=== PATIENT | male | born 1995 | race American Indian/Alaskan Native ===

== ENCOUNTER 2016-06-24 00:02 | Emergency (ER) | payer MEDICAID ==
[2016-06-24 00:23] VITALS: BMI 29.8
[2016-06-24 00:26] VITALS: BP 138/78; PULSE 86; RESP 17; TEMP 97.3; O2SAT 96
[2016-06-24] MEDS ORDERED: TDAP Vaccine 0.5 mL Syr IM ONE (00:28)
--- NOTE | 2016-06-24 00:52 | ED PDOC ---
Arrival/HPI - General Chief Complaint: Abnormal Skin Integrity Time Seen by Provider: 06/24/16 00:27 Historian: Patient - History of Present Illness Narrative History of Present Illness (Text): 06/24/16 00:52 20yr old male presents today with laceration to right hand s/p injury. pt states he was walking tripped and tried to catch his fall with his right hand hitting his hand on mirror. pt c/o pain to right hand. denies decreased rom of hand. last tetanus shot was in 2003. denies hitting head. incident occurred prior to arrival. no other complaints. Time/Duration: Prior to Arrival Symptom Onset: Sudden Symptom Course: Unchanged Quality: Throbbing Past Medical History - Provider Review Nursing Documentation Reviewed: Yes - Travel History Have you recently traveled outside [place] w/in the past 3 mons?: No - Past History Past History: Non-Contributing - Infectious Disease Hx of Infectious Diseases: None - Tetanus Immunization Tetanus Immunization: Up to Date - Past Medical History Past Medical History: No Previous - Cardiac Hx Cardiac Disorders: No Hx Hypertension: No - Pulmonary Hx Tuberculosis: No - Neurological HX Cerebrovascular Accident: No Hx Seizures: No - HEENT Hx HEENT Disorder: No - Renal Hx Renal Disorder: No - Endocrine/Metabolic Hx Endocrine Disorders: No - Hematological/Oncological Hx Cancer: No - Integumentary Hx Dermatological Disorder: No - Musculoskeletal/Rheumatological Hx Musculoskeletal Disorders: No Hx Falls: No - Gastrointestinal Hx Gastrointestinal Disorders: No - Genitourinary/Gynecological Hx Sexually Transmitted Diseases: No - Psychiatric Hx Depression: No Hx Substance Use: Yes (marijuana and heroin) - Past Surgical History Past Surgical History: No Previous - Anesthesia Hx Anesthesia: No Hx Anesthesia Reactions: No Hx Malignant Hyperthermia: No - Suicidal Assessment Feels Threatened In Home Enviroment: No Family/Social History - Physician Review Nursing Documentation Reviewed: Yes Family/Social History: Unknown Family HX Smoking Status: Light Smoker < 10 Cigarettes Daily Hx Alcohol Use: Yes Frequency of alcohol use: Few days per week Hx Substance Use: Yes (marijuana and heroin) Substance used: Mariquana Hx Substance Use Treatment: No Allergies/Home Meds Allergies/Adverse Reactions: Allergies lemon Allergy (Verified 10/24/15 21:49) RASH peanut Allergy (Verified 06/24/16 00:26) RASH Review of Systems - Review of Systems Constitutional: absent: Fatigue, Fevers Respiratory: absent: SOB, Cough Cardiovascular: absent: Chest Pain, Palpitations Gastrointestinal: absent: Abdominal Pain, Nausea, Vomiting Musculoskeletal: Arthralgias Skin: Laceration Neurological: absent: Headache, Dizziness Psychiatric: absent: Anxiety Physical Exam Vital Signs Reviewed: Yes Vital Signs Temp Pulse Resp BP Pulse Ox 06/24/16 00:23 97.3 F L 86 17 138/78 96 Temperature: Afebrile Blood Pressure: Normal Pulse: Regular Respiratory Rate: Normal Appearance: Positive for: Well-Appearing, Non-Toxic, Comfortable Pain Distress: None Mental Status: Positive for: Alert and Oriented X 3 - Systems Exam Head: Present: Atraumatic Neck: Present: Normal Range of Motion Respiratory/Chest: Present: Clear to Auscultation, Good Air Exchange. No: Respiratory Distress, Accessory Muscle Use Cardiovascular: Present: Regular Rate and Rhythm, Normal S1, S2. No: Murmurs Upper Extremity: Present: Normal ROM, NORMAL PULSES, Tenderness (right hand; there is a 3cm C shaped laceration noted to right 3rd finger at the PIP, a 1cm laceration noted to right 4th finger, and a 1.5cm c shaped laceration noted to the proximal phalanx of the right 5th finger. full rom of fingers and hand. sensation and distal pulses intact. cap refill <2. no wrist tenderness. ), Neurovascularly Intact, Capillary Refill < 2s. No: Swelling, Erythema, Deformity Neurological: Present: GCS=15 Skin: Present: Warm, Dry Psychiatric: Present: Alert, Oriented x 3 Medical Decision Making ED Course and Treatment: 06/24/16 00:55 Patient is nontoxic well appearing in no distress. Vital signs are stable. Wound irrigated well with high pressure irrigation Tetanus updated keflex po xray right hand; no fracture, no fb Laceration repaired by surgical physician assistant dr. abhishek nevarez; Bacitracin and dressing applied Patient was advised to keep the wound clean and dry, apply bacitracin twice daily. Advised to return immediately if signs of infection develop or return if any other concerning symptoms develop Impression: Laceration, hand Motrin every 6 hours as needed for pain keflex; 1 capsule 4 times daily x 7 days. Keep the wound clean and dry, apply bacitracin twice daily Return in 7-10 days for suture removal Return immediately if signs of infection develop: High fevers, increasing pain, redness, swelling, purulent discharge Follow up with the hand specialist within the next 2 days. Followup with primary care physician within the next 2 days Return if any other concerning symptoms develop 06/24/16 02:15 - RAD Interpretation Radiology Orders: 06/24/16 00:27 HAND RIGHT 3 VIEWS [RAD] Stat - Medication Orders Current Medication Orders: Discontinued Medications Lidocaine HCl (Lidocaine 1% (20ml)) Confirm Administered Dose 20 ml .ROUTE .STK- MED ONE Stop: 06/24/16 01:51 Tetanus/Reduced Diphtheria/Acell Pertussis (Boostrix Vaccine Inj) 0.5 ml IM .ONCE ONE Stop: 06/24/16 00:29 Last Admin: 06/24/16 00:57 Dose: 0.5 ml Disposition/Present on Arrival - Present on Arrival Any Indicators Present on Arrival: No History of DVT/PE: No History of Uncontrolled Diabetes: No Urinary Catheter: No History of Decub. Ulcer: No History Surgical Site Infection Following: None - Disposition Have Diagnosis and Disposition been Completed?: Yes Diagnosis: Laceration of hand Disposition: HOME/ ROUTINE Disposition Time: 00:56 Patient Plan: Discharge Condition: GOOD Discharge Instructions (ExitCare): Care For Your Stitches (ED), Laceration (ED) Additional Instructions: Motrin every 6 hours as needed for pain keflex; 1 capsule 4 times daily x 7 days. Keep the wound clean and dry, apply bacitracin twice daily Return in 7-10 days for suture removal Return immediately if signs of infection develop: High fevers, increasing pain, redness, swelling, purulent discharge Follow up with the hand specialist within the next 2 days. Followup with primary care physician within the next 2 days Return if any other concerning symptoms develop Prescriptions: Cephalexin [Keflex] 500 mg PO QID #28 capsule Ibuprofen [Motrin] 600 mg PO Q6H PRN #20 tab PRN Reason: pain/fever reduction Referrals: Rajesh Mccarthy MD [Staff Provider] - Follow up with primary [facility] [Outside] - Follow up with primary Forms: WORK NOTE
[2016-06-24] MEDS ORDERED: Lidocaine 1% Inj (20ml) ONE (01:50)
--- NOTE | 2016-06-24 08:12 | RAD ---
PROCEDURE: Right Hand Radiographs. HISTORY: multiple lacerations r/o fb COMPARISON: None. FINDINGS: BONES: There is a small bony fragment adjacent to the base of the 5th metacarpal involving the articular surface. This is probably an old fracture. JOINTS: Normal. No osteoarthritic changes. SOFT TISSUES: Normal. OTHER FINDINGS: No evidence of foreign body IMPRESSION: No evidence of foreign body
== END 2016-06-24 02:40 | disposition home or self-care (01) ==
LOC: ED 00:02
DX: S61.411A Laceration without foreign body of right hand, initial encounter (principal); W01.0XXA Fall on same level from slipping, tripping and stumbling without subsequent striking against object, initial encounter; Y93.01 Activity, walking, marching and hiking; F17.210 Nicotine dependence, cigarettes, uncomplicated; Z23 Encounter for immunization

== ENCOUNTER 2016-08-19 02:34 | Emergency (ER) | payer MEDICAID ==
[2016-08-19 02:50] VITALS: BMI 29.7
--- NOTE | 2016-08-19 02:52 | ED PDOC ---
Arrival/HPI - General Time Seen by Provider: 08/19/16 02:42 Historian: Patient - History of Present Illness Narrative History of Present Illness (Text): 08/19/16 02:49 Daniele Ibrahim is a 21 year old male under incarceration by [facility], who presents to the emergency department complaining of an asthma attack prior to arrival. Patient denies any fever, chills, chest pain, svomiting, diarrhea, urinary symptoms, back pain, neck pain, headache, dizziness, or any other complaints. Time/Duration: Prior to Arrival Symptom Onset: Sudden Symptom Course: Unchanged, Improving Severity Level: Mild Activities at Onset: Rest Context: Other Past Medical History - Provider Review Nursing Documentation Reviewed: Yes - Past History Past History: Non-Contributing - Infectious Disease Hx of Infectious Diseases: None - Tetanus Immunization Tetanus Immunization: Up to Date - Past Medical History Past Medical History: No Previous - Cardiac Hx Cardiac Disorders: No Hx Hypertension: No - Pulmonary Hx Tuberculosis: No - Neurological HX Cerebrovascular Accident: No Hx Seizures: No - HEENT Hx HEENT Disorder: No - Renal Hx Renal Disorder: No - Endocrine/Metabolic Hx Endocrine Disorders: No - Hematological/Oncological Hx Cancer: No - Integumentary Hx Dermatological Disorder: No - Musculoskeletal/Rheumatological Hx Musculoskeletal Disorders: No Hx Falls: No - Gastrointestinal Hx Gastrointestinal Disorders: No - Genitourinary/Gynecological Hx Sexually Transmitted Diseases: No - Psychiatric Hx Depression: No Hx Substance Use: Yes (marijuana and heroin) - Past Surgical History Past Surgical History: No Previous - Anesthesia Hx Anesthesia: No Hx Anesthesia Reactions: No Hx Malignant Hyperthermia: No - Suicidal Assessment Feels Threatened In Home Enviroment: No Family/Social History - Physician Review Nursing Documentation Reviewed: Yes Family/Social History: No Known Family HX Smoking Status: Light Smoker < 10 Cigarettes Daily Hx Alcohol Use: Yes Hx Substance Use: Yes (marijuana and heroin) Substance used: Mariquana Hx Substance Use Treatment: No Allergies/Home Meds Allergies/Adverse Reactions: Allergies lemon Allergy (Verified 10/24/15 21:49) RASH peanut Allergy (Verified 06/24/16 00:26) RASH Review of Systems - Physician Review All systems were reviewed & negative as marked: Yes - Review of Systems Constitutional: absent: Fevers, Night Sweats Eyes: absent: Vision Changes ENT: absent: Hearing Changes Respiratory: Other (Asthma attack) Cardiovascular: absent: Chest Pain Gastrointestinal: absent: Abdominal Pain Genitourinary Male: absent: Frequency, Urinary Output Changes Musculoskeletal: absent: Arthralgias Skin: absent: Rash, Pruritis Neurological: absent: Headache Endocrine: absent: Diaphoresis Hemo/Lymphatic: absent: Adenopathy Psychiatric: absent: Anxiety Physical Exam Vital Signs Temp Pulse Resp BP Pulse Ox 08/19/16 04:10 80 16 121/80 99 08/19/16 02:49 98.2 F 84 18 122/74 99 - Systems Exam Head: Present: Atraumatic, Normocephalic Pupils: Present: PERRL Extroacular Muscles: Present: EOMI Conjunctiva: Present: Normal Mouth: Present: Moist Mucous Membranes Neck: Present: Normal Range of Motion Respiratory/Chest: Present: Wheezes (bilaterally) Cardiovascular: Present: Regular Rate and Rhythm, Normal S1, S2. No: Murmurs Abdomen: Present: Normal Bowel Sounds. No: Tenderness, Distention, Peritoneal Signs Back: Present: Normal Inspection Upper Extremity: Present: Normal Inspection. No: Cyanosis, Edema Lower Extremity: Present: Normal Inspection. No: Edema Neurological: Present: GCS=15, CN II-XII Intact, Speech Normal Skin: Present: Warm, Dry, Normal Color. No: Rashes Psychiatric: Present: Alert, Oriented x 3, Normal Insight, Normal Concentration Medical Decision Making ED Course and Treatment: 08/19/16 02:52 Impression: 21 year old male complaining of Asthma attack prior to arrival. Plan: -- Duoneb and Solu-medrol -- Reassess and disposition Prior Visits: Notes and results from previous visits were reviewed. Patient last seen in the ED on 06/24/16 for right hand laceration s/p fall that day. Patient was discharged home. Progress Notes: - Medication Orders Current Medication Orders: Discontinued Medications Albuterol/Ipratropium (Duoneb 3 Mg/0.5 Mg (3 Ml) Ud) 3 ml IH Q15M LÁZARO Stop: 08/19/16 03:31 Last Admin: 08/19/16 03:22 Dose: 3 ml Methylprednisolone (Solu-Medrol) 125 mg IVP ONCE ONE Stop: 08/19/16 02:51 Last Admin: 08/19/16 03:06 Dose: 125 mg - Scribe Statement The provider has reviewed the documentation as recorded by the Jamie Soares Provider Scribe Attestation: All medical record entries made by the Scribe were at my direction and personally dictated by me. I have reviewed the chart and agree that the record accurately reflects my personal performance of the history, physical exam, medical decision making, and the department course for this patient. I have also personally directed, reviewed, and agree with the discharge instructions and disposition. Disposition/Present on Arrival - Present on Arrival Any Indicators Present on Arrival: No History of DVT/PE: No History of Uncontrolled Diabetes: No Urinary Catheter: No History Surgical Site Infection Following: None - Disposition Have Diagnosis and Disposition been Completed?: Yes Diagnosis: Asthma Disposition: RELEASED IN [employer] Disposition Time: 03:30 Condition: GOOD Discharge Instructions (ExitCare): Asthma (ED) Additional Instructions: medically stable for incarceration Prescriptions: predniSONE [predniSONE Tab] 20 mg PO TID #15 tab Albuterol HFA [Ventolin HFA] 1 puff IH QID #1 puff
[2016-08-19 02:54] VITALS: TEMP 98.2; O2SAT 99
[2016-08-19] MEDS: Albuterol-Ipratrop 3 mg / 0.5 (3 ml) UD IH SCH ×2 (03:06→03:22)
[2016-08-19 04:12] VITALS: BP 121/80; PULSE 80; RESP 16
== END 2016-08-19 04:10 ==
LOC: ED 02:34
DX: J45.909 Unspecified asthma, uncomplicated (principal)
CPT/HCPCS: 96374; 99284; J2930

== ENCOUNTER 2017-09-03 23:22 | Inpatient (IN) | payer MEDICAID ==
[2017-09-03 23:23] VITALS: BMI 29.7
--- NOTE | 2017-09-03 23:54 | ED PDOC ---
Arrival/HPI - General Chief Complaint: Substance Abuse Time Seen by Provider: 09/03/17 23:53 Historian: Patient - History of Present Illness Narrative History of Present Illness (Text): 09/03/17 23:54 22 year old male, whose past medical history includes asthma and substance abuse (heroin and cocaine), presents to the emergency department by EMS for substance abuse. [place] was given 2mg of Narcan. Patient is currently awake and alert. Patient states he had only one bag of heroin and admits to also using cocaine, but denies any alcohol use. Patient usual takes 20 bags of heroin a day. Patient reports back soreness and headache, but denies any fever, chills, chest pain, shortness of breath, nausea , vomiting, diarrhea, urinary symptoms, dizziness, trauma/injury, suicidal/ homicidal ideation or any other complaints. PMD: Dr. Earl Sayed Symptom Onset: Gradual Symptom Course: Improving Activities at Onset: Light Context: Other (light rail) Past Medical History - Provider Review Nursing Documentation Reviewed: Yes - Past History Past History: Non-Contributing - Infectious Disease Hx of Infectious Diseases: None - Tetanus Immunization Tetanus Immunization: Up to Date - Past Medical History Past Medical History: No Previous - Cardiac Hx Hypertension: No - Pulmonary Hx Asthma: Yes - Neurological Hx Seizures: No - HEENT Hx HEENT Disorder: No - Renal Hx Renal Disorder: No - Endocrine/Metabolic Hx Endocrine Disorders: No - Hematological/Oncological Hx Blood Disorders: No - Integumentary Hx Dermatological Disorder: No - Musculoskeletal/Rheumatological Hx Musculoskeletal Disorders: No Hx Falls: No (Denied) - Gastrointestinal Hx Gastrointestinal Disorders: No - Genitourinary/Gynecological Hx Sexually Transmitted Diseases: No - Psychiatric Hx Depression: No Hx Substance Use: Yes - Past Surgical History Past Surgical History: No Previous - Anesthesia Hx Anesthesia: No Hx Anesthesia Reactions: No Hx Malignant Hyperthermia: No - Suicidal Assessment Feels Threatened In Home Enviroment: No Family/Social History - Physician Review Nursing Documentation Reviewed: Yes Family/Social History: No Known Family HX Smoking Status: Heavy Smoker > 10 Cigarettes Daily Hx Alcohol Use: Yes Hx Substance Use: Yes Substance used: heroin Hx Substance Use Treatment: No Allergies/Home Meds Allergies/Adverse Reactions: Allergies lemon Allergy (Verified 09/03/17 23:33) RASH peanut Allergy (Verified 09/03/17 23:33) RASH Review of Systems - Physician Review All systems were reviewed & negative as marked: Yes - Review of Systems Constitutional: absent: Fevers, Other (Chills) Respiratory: absent: SOB Cardiovascular: absent: Chest Pain Gastrointestinal: absent: Diarrhea, Nausea, Vomiting Genitourinary Male: absent: Dysuria, Frequency, Hematuria Musculoskeletal: Other (Back soreness) Neurological: Headache. absent: Dizziness Physical Exam Vital Signs Reviewed: Yes Vital Signs Temp Pulse Resp BP Pulse Ox 09/04/17 09:26 98 F 84 18 126/68 99 09/04/17 07:20 98 F 79 17 120/70 99 09/04/17 05:14 86 18 124/47 L 97 09/03/17 23:30 97.7 F 87 18 102/57 L 99 Temperature: Afebrile Blood Pressure: Hypotensive Pulse: Regular Respiratory Rate: Normal Appearance: Positive for: Well-Appearing, Non-Toxic, Comfortable Pain Distress: None Mental Status: Positive for: Alert and Oriented X 3 - Systems Exam Head: Present: Atraumatic, Normocephalic Pupils: Present: PERRL (pupils 3mm) Extroacular Muscles: Present: EOMI Conjunctiva: Present: Normal Mouth: Present: Moist Mucous Membranes Neck: Present: Normal Range of Motion, Other (paravertebral cervical spine tenderness) Respiratory/Chest: Present: Clear to Auscultation, Good Air Exchange. No: Respiratory Distress, Accessory Muscle Use Cardiovascular: Present: Regular Rate and Rhythm, Normal S1, S2. No: Murmurs Abdomen: No: Tenderness, Distention, Peritoneal Signs Back: Present: Normal Inspection Upper Extremity: Present: Normal Inspection. No: Cyanosis, Edema Lower Extremity: Present: Normal Inspection. No: Edema Neurological: Present: GCS=15, CN II-XII Intact, Speech Normal Skin: Present: Warm, Dry, Normal Color. No: Rashes Psychiatric: Present: Alert, Oriented x 3, Normal Insight, Normal Concentration Medical Decision Making ED Course and Treatment: 09/03/17 23:54 Impression: 22 year old male presents for substance abuse. Patient was found unresponsive after using one bag of heroin and cocaine tonight. Patient reports headache and back soreness. Plan: -- EKG -- Labs -- Chest X-ray -- Urinalysis -- Reassess and disposition Progress Notes: Patient request a detox program and something to eat. Patient was given information about the programs. 09/04/17 00:15 Informed by nurse that patient states if he is discharged tonight he will "kill himself". PES workup will be done. 09/04/17 01:13 EKG shows NSR at 79 BPM with occasional PACs. Normal axis. QTC 433. No ST/T wave changes. with no prior for comparison. Interpreted by me. 09/04/17 04:30 CXR Impression: As read by me, no acute disease. 09/04/17 05:27 PES worker tried to evaluate patient, but patient remains intoxicated and not able to answer questions. - Lab Interpretations Lab Results: 09/04/17 01:36 09/04/17 01:36 Lab Results 09/04/17 05:45: Urine Opiates Screen Positive H, Urine Methadone Screen Negative , Ur Barbiturates Screen Negative, Ur Phencyclidine Scrn Negative, Ur Amphetamines Screen Negative, U Benzodiazepines Scrn Positive H, U Oth Cocaine Metabols Positive H, U Cannabinoids Screen Negative 09/04/17 05:45: Urine Color Straw, Urine Appearance Clear, Urine pH 6.0, Ur Specific [place] <= 1.005, Urine Protein Negative, Urine Glucose (UA) Negative, Urine Ketones Negative, Urine Blood Negative, Urine Nitrate Negative, Urine Bilirubin Negative, Urine Urobilinogen 0.2, Ur Leukocyte Esterase Negative 09/04/17 01:36: Alcohol, Quantitative < 10 09/04/17 01:36: Salicylates < 1 L, Acetaminophen < 10.0 L 09/04/17 01:36: Sodium 139, Potassium 3.9, Chloride 95 L, Carbon Dioxide 31, Anion Gap 17, BUN 15, Creatinine 1.0, Est GFR ( Amer) > 60, Est GFR (Non- Af Amer) > 60, Random Glucose 50 L, Calcium 9.4, Total Bilirubin 0.5, AST 202 H D, ALT 456 H, Alkaline Phosphatase 142 H D, Total Protein 8.5 H, Albumin 5.0 H, Globulin 3.5, Albumin/Globulin Ratio 1.4 09/04/17 01:36: WBC 6.7 D, RBC 4.76, Hgb 14.1, Hct 41.2 L, MCV 86.6, MCH 29.6, MCHC 34.2, RDW 13.1, Plt Count 291, MPV 8.3, Gran % 48.5 L, Lymph % (Auto) 39.0 H, [place] % (Auto) 8.5 H, Eos % (Auto) 3.4, Baso % (Auto) 0.6, Gran # 3.26, Lymph # (Auto) 2.6, [place] # (Auto) 0.6, Eos # (Auto) 0.2, Baso # (Auto) 0.04 I have reviewed the lab results: Yes - RAD Interpretation Radiology Orders: 09/04/17 00:24 CHEST PORTABLE [RAD] Stat - EKG Interpretation Interpreted by ED Physician: Yes Type: 12 lead EKG - Medication Orders Current Medication Orders: Albuterol/Ipratropium (Duoneb 3 Mg/0.5 Mg (3 Ml) Ud) 3 ml IH Q4 PRN PRN Reason: sob Arformoterol Tartrate (Brovana) 15 mcg IH [id number] [facility] Budesonide (Pulmicort Respules) 0.25 mg IH [id number] [facility] Stop: 09/07/17 10:00 Clonidine HCl (Catapres) 0.1 mg PO BID PRN PRN Reason: opioid withdrawals Last Admin: 09/04/17 18:15 Dose: 0.1 mg Gabapentin (Neurontin) 300 mg PO TID [facility] PRN Reason: Protocol Last Admin: 09/04/17 18:15 Dose: 300 mg Lorazepam (Ativan) 2 mg IM Q6 PRN; Protocol PRN Reason: Agitation Lorazepam (Ativan) 2 mg PO Q6 PRN; Protocol PRN Reason: ANXIETY/AGITATION Last Admin: 09/04/17 18:15 Dose: 2 mg Mirtazapine (Remeron) 15 mg PO HS [facility] Multivitamins/Minerals (Therapeutic-M Tab) 1 tab PO DAILY [facility] Ondansetron HCl (Zofran Odt) 4 mg PO Q8H PRN PRN Reason: Nausea/Vomiting Quetiapine Fumarate (Seroquel) 50 mg PO HS [facility] PRN Reason: Protocol Tramadol HCl (Ultram) 50 mg PO TID [facility] Last Admin: 09/04/17 18:15 Dose: 50 mg MAR Pain Assessment Document 09/04/17 18:15 [facility] (Rec: 09/04/17 18:15 [facility] [id number]) Pain Reassessment Is this a pain reassessment? Yes Ziprasidone (Geodon Cap) 20 mg PO Q6H PRN; Protocol PRN Reason: psychosis/agitation Ziprasidone (Geodon Inj) 20 mg IM Q6H PRN; Protocol PRN Reason: severe agitaiton/psychosis - Transfer of Care Patient signed out to Dr:: Boubacar Other: Pending PES eval - Scribe Statement The provider has reviewed the documentation as recorded by the Lazaraibe Lisa Ramirez Provider Scribe Attestation: All medical record entries made by the Scribe were at my direction and personally dictated by me. I have reviewed the chart and agree that the record accurately reflects my personal performance of the history, physical exam, medical decision making, and the department course for this patient. I have also personally directed, reviewed, and agree with the discharge instructions and disposition. Disposition/Present on Arrival - Present on Arrival Any Indicators Present on Arrival: No History of DVT/PE: No History of Uncontrolled Diabetes: No Urinary Catheter: No History of Decub. Ulcer: No History Surgical Site Infection Following: None - Disposition Have Diagnosis and Disposition been Completed?: Yes Diagnosis: Heroin overdose, Suicidal ideation, Depression Disposition: HOSPITALIZED Disposition Time: 06:44 Patient Problems: Current Active Problems Problem Status Onset Depression Acute Heroin overdose Acute Polysubstance abuse Acute Substance induced mood disorder Acute Suicidal ideation Acute Condition: FAIR
[2017-09-04 01:51] LABS: BASO # 0.04 K/mm3 (0.0-2.0); BASO % 0.6 % (0.0-3.0); EOS # 0.2 (0.0-0.7); EOS % 3.4 % (1.5-5.0); GRAN # 3.26 (1.4-6.5); GRAN % 48.5 % (50.0-68.0); HEMOGLOBIN 14.1 g/dL (14.0-18.0); LYMPH # 2.6 (1.2-3.4); MEAN CELL VOLUME 86.6 fl (80.0-105.0); MEAN CORPUSCULAR HEMOGLOBIN 29.6 pg (25.0-35.0); MEAN CORPUSCULAR HGB CONC 34.2 g/dl (31.0-37.0); MEAN PLATELET VOLUME 8.3 fl (7.0-11.0); MONO # 0.6 (0.1-0.6); MONO % 8.5 % (1.0-6.0); RBC 4.76 10^6/uL (3.5-6.1); RED CELL DISTRIBUTION WIDTH 13.1 % (11.5-14.5); WHITE BLOOD COUNT 6.7 10^3/ul (4.5-11.0)
[2017-09-04 01:58] LABS: ACETAMINOPHEN < 10.0 ug/ml (10.0-20.0); ALB/GLOB RATIO 1.4 (1.1-1.8); ALT/SGPT 456 U/L (7-56); AST/SGOT 202 U/L (17-59); BLOOD UREA NITROGEN 15 mg/dL (7-21); CALCIUM 9.4 mg/dL (8.4-10.5); GFR AFRICAN-AMERICAN > 60; GFR NON-AFRICAN AMERICAN > 60; SALICYLATE < 1 mg/dL (2.0-20.0)
[2017-09-04 06:15] LABS: URINE BILIRUBIN NEGATIVE (NEGATIVE); URINE BLOOD NEGATIVE (NEGATIVE); URINE GLUCOSE (UA) NEGATIVE (NEGATIVE); URINE LEUKOCYTE ESTERASE NEGATIVE Leu/uL (NEGATIVE); URINE PROTEIN NEGATIVE mg/dL (<30 mg/dL); URINE UROBILINOGEN 0.2 E.U./dL (<1 E.U./dL)
[2017-09-04 06:17] LABS: URINE APPEARANCE CLEAR (CLEAR); URINE COLOR STRAW (YELLOW)
[2017-09-04 06:44] LABS: BARBITURATES, UR NEGATIVE (NEGATIVE); BENZODIAZEPINES, UR POSITIVE (NEGATIVE); OPIATES, UR POSITIVE (NEGATIVE); PHENCYCLIDINE, UR NEGATIVE (NEGATIVE)
--- NOTE | 2017-09-04 07:14 | ED PDOC ---
Physical Exam Vital Signs Temp Pulse Resp BP Pulse Ox 09/04/17 07:20 98 F 79 17 120/70 99 09/04/17 05:14 86 18 124/47 L 97 09/03/17 23:30 97.7 F 87 18 102/57 L 99 Medical Decision Making ED Course and Treatment: 09/04/17 07:00 Case signed out to me by Dr. Holland. Patient is a 22 year old male, whose PMH includes asthma and substance abuse (heroin and cocaine), who came emergency department s/p for substance abuse and [place] light [place] un[place]. Patient is currently awake and alert and is medically cleared for psych evaluation. 09/04/17 09:08 Patient was medically cleared for psych evaluation. He was evaluated by Eileen CLAYTON with consult from Dr. Renetta Condon, who will accept the patient for r/o Depression and Polysubstance Abuse and Dependence to the Psychiatric Unit. - Lab Interpretations Lab Results: 09/04/17 01:36 09/04/17 01:36 Lab Results 09/04/17 05:45: Urine Opiates Screen Positive H, Urine Methadone Screen Negative , Ur Barbiturates Screen Negative, Ur Phencyclidine Scrn Negative, Ur Amphetamines Screen Negative, U Benzodiazepines Scrn Positive H, U Oth Cocaine Metabols Positive H, U Cannabinoids Screen Negative 09/04/17 05:45: Urine Color Straw, Urine Appearance Clear, Urine pH 6.0, Ur Specific [place] <= 1.005, Urine Protein Negative, Urine Glucose (UA) Negative, Urine Ketones Negative, Urine Blood Negative, Urine Nitrate Negative, Urine Bilirubin Negative, Urine Urobilinogen 0.2, Ur Leukocyte Esterase Negative 09/04/17 01:36: Alcohol, Quantitative < 10 09/04/17 01:36: Salicylates < 1 L, Acetaminophen < 10.0 L 09/04/17 01:36: Sodium 139, Potassium 3.9, Chloride 95 L, Carbon Dioxide 31, Anion Gap 17, BUN 15, Creatinine 1.0, Est GFR ( Amer) > 60, Est GFR (Non- Af Amer) > 60, Random Glucose 50 L, Calcium 9.4, Total Bilirubin 0.5, AST 202 H D, ALT 456 H, Alkaline Phosphatase 142 H D, Total Protein 8.5 H, Albumin 5.0 H, Globulin 3.5, Albumin/Globulin Ratio 1.4 09/04/17 01:36: WBC 6.7 D, RBC 4.76, Hgb 14.1, Hct 41.2 L, MCV 86.6, MCH 29.6, MCHC 34.2, RDW 13.1, Plt Count 291, MPV 8.3, Gran % 48.5 L, Lymph % (Auto) 39.0 H, [place] % (Auto) 8.5 H, Eos % (Auto) 3.4, Baso % (Auto) 0.6, Gran # 3.26, Lymph # (Auto) 2.6, [place] # (Auto) 0.6, Eos # (Auto) 0.2, Baso # (Auto) 0.04 - RAD Interpretation Radiology Orders: 09/04/17 00:24 CHEST PORTABLE [RAD] Stat - Scribe Statement The provider has reviewed the documentation as recorded by the Scribe Yina Silva Provider Scribe Attestation: All medical record entries made by the Scribe were at my direction and personally dictated by me. I have reviewed the chart and agree that the record accurately reflects my personal performance of the history, physical exam, medical decision making, and the department course for this patient. I have also personally directed, reviewed, and agree with the discharge instructions and disposition. Disposition/Present on Arrival - Present on Arrival Any Indicators Present on Arrival: No History of DVT/PE: No History of Uncontrolled Diabetes: No Urinary Catheter: No History of Decub. Ulcer: No History Surgical Site Infection Following: None - Disposition Have Diagnosis and Disposition been Completed?: Yes Diagnosis: Heroin overdose, Suicidal ideation, Depression Disposition: HOSPITALIZED Disposition Time: 09:10 Patient Plan: Admission Patient Problems: Current Active Problems Problem Status Onset Heroin overdose Acute Suicidal ideation Acute Condition: FAIR Referrals: Lorrie Earl MD [Primary Care Provider] - Follow up with primary Forms: [employer] (French)
[2017-09-04 08:36] VITALS: O2SAT 99
--- NOTE | 2017-09-04 09:02 | RAD ---
Date of service: 09/04/2017 HISTORY: medical clearance COMPARISON: No prior. FINDINGS: LUNGS: No active pulmonary disease. PLEURA: No significant pleural effusion identified, no pneumothorax apparent. CARDIOVASCULAR: Normal. OSSEOUS STRUCTURES: No significant abnormalities. VISUALIZED UPPER ABDOMEN: Normal. OTHER FINDINGS: None. IMPRESSION: No active disease.
--- NOTE | 2017-09-04 10:03 | CARD ---
APPROVED REPORT Date of service: 09/04/2017 EKG Measurement Heart [id number] <Conclusion> Sinus rhythm with premature supraventricular complexes Otherwise normal ECG
--- NOTE | 2017-09-04 11:12 | PCM.BM ---
<ChantaleMichael - Last Filed: 09/04/17 11:09> Treatment Plan Problems - Problems identified on initial assessmt HOPELESSNESS/HELPLESSNESS Date Initiated: 09/04/17 Time Initiated: 11:09 Assessment reference: HP, NA Status: Active INEFFECTIVE COPING Date Initiated: 09/04/17 Time Initiated: 11:10 Assessment reference: HP, NA Status: Active MEDICATION NONADHERENCE Date Initiated: 09/04/17 Time Initiated: 11:10 Assessment reference: HP Status: Active Treatment assets and liabiliti Patient Assests: cooperative, resourceful, ADL independent, good support system , cognitively intact, good interpersonal skills Patient Liabilities: live alone, financial problems, substance abuse ( POLISUBSTANCE ABUSE), medical problems, other - Milieu Protocol Maintain good personal hygiene: daily Encourage regular showers, daily Remind patient to perform daily oral care, daily Assist patient to perform ADL's Maintain personal safety: daily Educate patient to report safety concerns to staff, daily Monitor environment for contraband/sharps Medication safety: Monitor for expected outcome, potential side effects: daily, Assess barriers to learning: daily, Assess readiness for medication education: daily Discharge/Continuing Care - Education Needs Education Needs: Patient Medication, Patient Diagnosis/Disease Process, Patient Coping Skills, Patient Anger Management skills, Patient Community resources, Patient Activities of Daily Living, Patient Health Practices/Safety, Patient Personal Hygiene/Grooming, Patient Aftercare Safety Plan - Discharge Discharge Criteria: Free of Suicidal thoughts, Free of Homicidal thoughts, Normal sleep pattern, Ability to care for self <Renetta Condon - Last Filed: 09/04/17 16:04> - Diagnosis (1) Polysubstance abuse Status: Acute Interventions: 09/04/17 16:04 Monitoring withdrawal symptoms Medical detoxification Pharmacotherapy for alcohol/benzos/opioid dependence Maintaining sobriety Relapse prevention Possible rehabilitation Motivational interviewing 12-step programs: AA meetings (2) Substance induced mood disorder Status: Acute Interventions: 09/04/17 16:04 Psychoeducation Psychopharmacology/adjustment of medications as needed/ monitoring possible side effects Evaluate pt on daily basis Compliance with medications and follow up appointments Suicide and homicide risk assessment and prevention Relapse prevention Reduction of symptoms Improve functional status Family involvement As outpatient: cognitive behavioral therapy <Krystle Soto - Last Filed: 09/04/17 17:26> Family Contact Family involvement: Famliy/SO not involved
[2017-09-04] MEDS ORDERED: Albuterol-Ipratrop 3 mg / 0.5 (3 ml) UD IH PRN ×2 (16:12→18:23)
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
[2017-09-04] MEDS ORDERED: Albuterol 0.083% Inhal Sol (2.5 mg/3 mL) UD IH PRN ×2 (18:12→18:13)
--- NOTE | 2017-09-04 18:14 | CP.PCM.CON ---
<Mable Baker - Last Filed: 09/04/17 18:07> History of Present Illness - History of Present Illness History of Present Illness: Mable Baker, PGY2, Medicine Consult for Dr Clark: Reason for consult: wheezing 22 year old male, with PMH homelessness, asthma, depression, hepatitis C, polysubstance abuse, brought in by EMS for drug overdose. [place] un[place] and given 2 mg Narcan. Reports daily taking 1 bag heroin , cocaine, but this time, he said "it might have been strong." Denies fevers, chills, nausea, vomiting, abdominal pain, diarrhea, urinary symptoms, palpitations, chest pain, leg swelling, sob, cough. Patient reports suicidal ideations, thereby requiring psych admission. 12 point ROS obtained and neg, except as per HPI. PMD: Dr. Earl Sayed PMH: asthma, depression, Hepatitis C PSH: denies NKA FH: Mother, suicidal SH: homeless. Smokes marijuana daily, smokes tobacco 1/2 ppdx past 6 years. Uses daily IV heroin - 1 bag - x past 6 months. Review of Systems - Review of Systems All systems: reviewed and no additional remarkable complaints except Review of Systems: as per HPI Past Patient History - Infectious Disease Hx of Infectious Diseases: None - Tetanus Immunizations Tetanus Immunization: Up to Date - Past Medical History & Family History Past Medical History?: Yes - Past Social History Smoking Status: Heavy Smoker > 10 Cigarettes Daily - CARDIAC Hx Cardiac Disorders: No Hx Hypertension: No - PULMONARY Hx Bronchitis: Yes Hx Tuberculosis: No - NEUROLOGICAL HX Cerebrovascular Accident: No Hx Seizures: No - HEENT Hx HEENT Problems: No - RENAL Hx Chronic Kidney Disease: No - ENDOCRINE/METABOLIC Hx Endocrine Disorders: No - HEMATOLOGICAL/ONCOLOGICAL Hx Cancer: No Hx Human Immunodeficiency Virus (HIV): No - INTEGUMENTARY Hx Dermatological Problems: No - MUSCULOSKELETAL/RHEUMATOLOGICAL Hx Musculoskeletal Disorders: No Hx Falls: No (Denied) - GASTROINTESTINAL Hx Gastrointestinal Disorders: Yes Hx Fatty Liver Disease: Yes - GENITOURINARY/GYNECOLOGICAL Hx Sexually Transmitted Disorders: No - PSYCHIATRIC Hx Depression: No Hx Substance Use: Yes - SURGICAL HISTORY Hx Surgeries: No (Denied) - ANESTHESIA Hx Anesthesia: No Hx Anesthesia Reactions: No Hx Malignant Hyperthermia: No Meds Allergies/Adverse Reactions: Allergies Allergy/AdvReac Type Severity Reaction Status Date / Time lemon Allergy RASH Verified 09/04/17 22:48 peanut Allergy RASH Verified 09/04/17 22:48 - Medications Medications: Current Medications Albuterol (Ventolin Hfa 90 Mcg/Actuation (8 G)) 2 puff IH [id number] PRN PRN Reason: Wheezing Albuterol/Ipratropium (Duoneb 3 Mg/0.5 Mg (3 Ml) Ud) 3 ml IH [id number] PRN PRN Reason: sob Clonidine HCl (Catapres) 0.1 mg PO BID PRN PRN Reason: opioid withdrawals Gabapentin (Neurontin) 300 mg PO TID LÁZARO PRN Reason: Protocol Lorazepam (Ativan) 2 mg IM Q6 PRN; Protocol PRN Reason: Agitation Lorazepam (Ativan) 2 mg PO Q6 PRN; Protocol PRN Reason: ANXIETY/AGITATION Mirtazapine (Remeron) 15 mg PO HS LÁZARO Multivitamins/Minerals (Therapeutic-M Tab) 1 tab PO DAILY [facility] Ondansetron HCl (Zofran Odt) 4 mg PO Q8H PRN PRN Reason: Nausea/Vomiting Quetiapine Fumarate (Seroquel) 50 mg PO HS LÁZARO PRN Reason: Protocol Tramadol HCl (Ultram) 50 mg PO TID LÁZARO Ziprasidone (Geodon Cap) 20 mg PO Q6H PRN; Protocol PRN Reason: psychosis/agitation Ziprasidone (Geodon Inj) 20 mg IM Q6H PRN; Protocol PRN Reason: severe agitaiton/psychosis Physical Exam - Constitutional Appears: Non-toxic, No Acute Distress - Head Exam Head Exam: ATRAUMATIC, NORMOCEPHALIC - Eye Exam Eye Exam: EOMI, PERRL. absent: Conjunctival injection, Nystagmus, Scleral icterus Pupil Exam: NORMAL ACCOMODATION, PERRL. absent: Irregular, Miosis, Unequal - ENT Exam ENT Exam: Mucous Membranes Moist - Neck Exam Neck exam: Positive for: Full Rom - Respiratory Exam Respiratory Exam: Wheezes (mild), NORMAL BREATHING PATTERN. absent: Chest Wall Tenderness, Decreased Breath Sounds, Rales, Rhonchi, Respiratory Distress, Stridor - Cardiovascular Exam Cardiovascular Exam: RRR, +S1, +S2. absent: Systolic Murmur - GI/Abdominal Exam GI & Abdominal Exam: Normal Bowel Sounds, Soft. absent: Distended, Firm, Guarding, Mass, Rebound, Rigid, Tenderness - Extremities Exam Extremities exam: Positive for: normal inspection. Negative for: calf tenderness, pedal edema - Back Exam Back exam: NORMAL INSPECTION - Neurological Exam Neurological exam: Alert, Oriented x3 - Psychiatric Exam Psychiatric exam: Normal Affect, Normal Mood - Skin Skin Exam: Dry, Normal Color, Warm Results - Vital Signs Recent Vital Signs: Last Vital Signs Temp 98 F 09/04/17 09:26 Pulse 84 09/04/17 09:26 Resp 18 09/04/17 09:26 BP 126/68 09/04/17 09:26 Pulse Ox 99 09/04/17 09:26 - Labs Result Diagrams: 09/04/17 01:36 09/04/17 01:36 Assessment & Plan - Assessment and Plan (Free Text) Assessment: 22 year old male with PMH homelessness, asthma, depression, polysubstance abuse , reported hx of Hep C, admitted s/p drug overdose, suicidal ideations. Patient found to have mild wheezing on exam, elevated LFTS: Suicidal ideation/drug abuse/depression: - management as per psych Asthma: - ventolin inhaler - vital signs stable Elevated LFTs: - hepatitis panel - will repeat CMP tomorrow - monitor Mild hypoglycemia: - will repeat blood glucose - Encourage PO intake Patient seen and discussed with Dr Clark. Mable Baker, PGY2 <Jackson Clark - Last Filed: 09/05/17 10:31> Meds - Medications Medications: Current Medications Albuterol/Ipratropium (Duoneb 3 Mg/0.5 Mg (3 Ml) Ud) 3 ml IH Q4 PRN PRN Reason: sob Arformoterol Tartrate (Brovana) 15 mcg IH [id number] LÁZARO Last Admin: 09/05/17 07:56 Dose: Not Given Budesonide (Pulmicort Respules) 0.25 mg IH [id number] LÁZARO Stop: 09/07/17 10:00 Last Admin: 09/05/17 07:56 Dose: Not Given Clonidine HCl (Catapres) 0.1 mg PO BID PRN PRN Reason: opioid withdrawals Last Admin: 09/04/17 18:15 Dose: 0.1 mg Gabapentin (Neurontin) 300 mg PO TID LÁZARO PRN Reason: Protocol Last Admin: 09/04/17 18:15 Dose: 300 mg Lorazepam (Ativan) 2 mg IM Q6 PRN; Protocol PRN Reason: Agitation Lorazepam (Ativan) 2 mg PO Q6 PRN; Protocol PRN Reason: ANXIETY/AGITATION Last Admin: 09/04/17 18:15 Dose: 2 mg Mirtazapine (Remeron) 15 mg PO HS [facility] Last Admin: 09/04/17 21:09 Dose: 15 mg Multivitamins/Minerals (Therapeutic-M Tab) 1 tab PO DAILY [facility] Ondansetron HCl (Zofran Odt) 4 mg PO Q8H PRN PRN Reason: Nausea/Vomiting Quetiapine Fumarate (Seroquel) 50 mg PO HS LÁZARO PRN Reason: Protocol Last Admin: 09/04/17 21:09 Dose: 50 mg Tramadol HCl (Ultram) 50 mg PO TID LÁZARO Last Admin: 09/04/17 18:15 Dose: 50 mg Ziprasidone (Geodon Cap) 20 mg PO Q6H PRN; Protocol PRN Reason: psychosis/agitation Ziprasidone (Geodon Inj) 20 mg IM Q6H PRN; Protocol PRN Reason: severe agitaiton/psychosis Results - Vital Signs Recent Vital Signs: Last Vital Signs Temp 98 F 09/04/17 09:26 Pulse 65 09/04/17 16:00 Resp 18 09/04/17 09:26 BP 99/56 L 09/04/17 16:00 Pulse Ox 99 09/04/17 09:26 - Labs Result Diagrams: 09/04/17 01:36 09/05/17 07:00 Labs: Laboratory Results - last 24 hr 09/05/17 09/05/17 07:00 07:00 Sodium 140 Potassium 4.2 Chloride 106 Carbon Dioxide 26 Anion Gap 12 BUN 15 Creatinine 0.8 Est GFR ( Amer) > 60 Est GFR (Non-Af Amer) > 60 Random Glucose 102 Calcium 9.1 Total Bilirubin 0.2 AST 175 H ALT 365 H Alkaline Phosphatase 127 H Total Protein 6.6 Albumin 3.8 Globulin 2.8 Albumin/Globulin Ratio 1.3 Triglycerides 44 Cholesterol 138 LDL Cholesterol Direct 41 HDL Cholesterol 80 H Free T4 1.10 TSH 3rd Generation 0.30 L Attending/Attestation - Attestation I have personally seen and examined this patient.: Yes I have fully participated in the care of the patient.: Yes I have reviewed all pertinent clinical information: Yes Notes (Text): 09/05/17 10:27 Attending note; Patient seen and examined with resident in psychiatric floor. Medical consult requested for asthma management. Patient is a 22 year old male with PMH of homelessness, asthma, depression, hepatitis C, polysubstance abuse, brought in by EMS for drug overdose. [place] un[place] and given 2 mg Narcan. The patient was admitted to psychiatric floor for suicidal ideation. Urine drug is positive for opiates, benzos and cocaine. Continue treatment with Ativan and clonidine per psychiatrist. Asthma; started on DuoNeb when necessary. Patient uses albuterol and Advair when necessary at home. Currently no significant wheezing. Stable respiratory status. Active smoking; smoking cessation is strongly advised. Patient refused patch. Polysubstance abuse; complete cessation of all drugs is strongly recommended. IVDA; elevated LFTs. Secondary to alcohol abuse and drug abuse. Hepatitis and HIV ordered. Patient has multiple healed scars. Prognosis is poor secondary to multiple drug abuse. Patient is advised to follow-up with [facility] clinic upon discharge. 09/05/17 10:30
[2017-09-04] MEDS ORDERED: Albuterol HFA 90 mcg/actuation (8 g) IH PRN (18:16)
[2017-09-05 07:47] LABS: ALB/GLOB RATIO 1.3 (1.1-1.8); ALBUMIN 3.8 g/dL (3.0-4.8); ALT/SGPT 365 U/L (7-56); AST/SGOT 175 U/L (17-59); BLOOD UREA NITROGEN 15 mg/dL (7-21); CALCIUM 9.1 mg/dL (8.4-10.5); GFR AFRICAN-AMERICAN > 60; GFR NON-AFRICAN AMERICAN > 60; HDL CHOLESTEROL 80 mg/dL (29-60)
[2017-09-05 07:48] LABS: LDL CHOLESTEROL 41 mg/dL (0-129)
[2017-09-05 07:52] LABS: FREE T4 1.1 ng/dL (0.78-2.19)
[2017-09-05] MEDS: Arformoterol 15 mcg/2 ml Inh Sol IH SCH ×2 (07:56→20:23)
[2017-09-05] MEDS: Budesonide 0.25 mg/2 ml Inhal Susp UD IH SCH (07:56)
[2017-09-05] MEDS: Multivitamin With Minerals Tab PO SCH (08:00)
--- NOTE | 2017-09-05 09:23 | PCM.PYCHPN ---
Psychiatric Progress Note - Psychiatric Progress Note Patient seen today, length of contact: 25 min Problems Identified/Issues Discussed: I reviewed assessment and recent notes. Patient has been in good control on the unit. Visible and approachable. He doesn't appear to be affected by any perceptual disturbance and reported feeling less depressed than prior to admission. He was very reluctant to engage in an interview with me this morning , like because he was still sleepy from HS medications last night. Generally denied any new concerns and didn't appear to be in any distress during my visit. Diagnostic Results: r/o substance-induced mood disorder Rule out major depressive disorder Rule out antisocial personality disorder Polysubstance abuse and dependence Medication Change: No Medical Record Reviewed: Yes Mental Status Examination - Homicidal Ideation Homicidal Ideation: No Goal/Treatment Plan - Goal/Treatment Plan Progress Toward Problem(s) and Goals/Treatment Plan: * c/w current tx and plan * Vitals reviewed and noted below: Selected Entries 09/04/17 09/04/17 09:26 16:00 Temperature 98 F Pulse Rate 84 65 Respiratory 18 Rate Blood Pressure 126/68 99/56 L * New weekend lab results noted below: Laboratory Results - last 24 hr 09/05/17 09/05/17 07:00 07:00 Sodium 140 Potassium 4.2 Chloride 106 Carbon Dioxide 26 Anion Gap 12 BUN 15 Creatinine 0.8 Est GFR ( Amer) > 60 Est GFR (Non-Af Amer) > 60 Random Glucose 102 Calcium 9.1 Total Bilirubin 0.2 AST 175 H ALT 365 H Alkaline Phosphatase 127 H Total Protein 6.6 Albumin 3.8 Globulin 2.8 Albumin/Globulin Ratio 1.3 Triglycerides 44 Cholesterol 138 LDL Cholesterol Direct 41 HDL Cholesterol 80 H Free T4 1.10 TSH 3rd Generation 0.30 L
--- NOTE | 2017-09-05 10:24 | CP.PCM.PN ---
<Bala Weaver - Last Filed: 09/05/17 10:25> Subjective - Date & Time of Evaluation Date of Evaluation: 09/05/17 Time of Evaluation: 10:21 - Subjective Subjective: Bala Weaver D.O PGY-1, Internal Medicine progress note for Dr. Clark Patient was examined at bedside, no acute overnight events. Patient offers no new complaints at this time. Denies fevers, chills, chest pain, shortness of breath, abdominal pain, N/V/D. Objective - Vital Signs/Intake and Output Vital Signs (last 24 hours): Temp Pulse Resp BP Pulse Ox 98 F 65 18 99/56 L 99 09/04/17 09:26 09/04/17 16:00 09/04/17 09:26 09/04/17 16:00 09/04/17 09:26 - Medications Medications: Current Medications Albuterol/Ipratropium (Duoneb 3 Mg/0.5 Mg (3 Ml) Ud) 3 ml IH Q4 PRN PRN Reason: sob Arformoterol Tartrate (Brovana) 15 mcg IH [id number] [facility] Last Admin: 09/05/17 07:56 Dose: Not Given Budesonide (Pulmicort Respules) 0.25 mg IH [id number] [facility] Stop: 09/07/17 10:00 Last Admin: 09/05/17 07:56 Dose: Not Given Clonidine HCl (Catapres) 0.1 mg PO BID PRN PRN Reason: opioid withdrawals Last Admin: 09/04/17 18:15 Dose: 0.1 mg Gabapentin (Neurontin) 300 mg PO TID [facility] PRN Reason: Protocol Last Admin: 09/04/17 18:15 Dose: 300 mg Lorazepam (Ativan) 2 mg IM Q6 PRN; Protocol PRN Reason: Agitation Lorazepam (Ativan) 2 mg PO Q6 PRN; Protocol PRN Reason: ANXIETY/AGITATION Last Admin: 09/04/17 18:15 Dose: 2 mg Mirtazapine (Remeron) 15 mg PO HS [facility] Last Admin: 09/04/17 21:09 Dose: 15 mg Multivitamins/Minerals (Therapeutic-M Tab) 1 tab PO DAILY [facility] Ondansetron HCl (Zofran Odt) 4 mg PO Q8H PRN PRN Reason: Nausea/Vomiting Quetiapine Fumarate (Seroquel) 50 mg PO HS [facility] PRN Reason: Protocol Last Admin: 09/04/17 21:09 Dose: 50 mg Tramadol HCl (Ultram) 50 mg PO TID [facility] Last Admin: 09/04/17 18:15 Dose: 50 mg Ziprasidone (Geodon Cap) 20 mg PO Q6H PRN; Protocol PRN Reason: psychosis/agitation Ziprasidone (Geodon Inj) 20 mg IM Q6H PRN; Protocol PRN Reason: severe agitaiton/psychosis - Labs Labs: 09/05/17 07:00 - Respiratory Exam Respiratory Exam: Clear to Ausculation Bilateral. absent: Rales, Rhonchi, Wheezes Additional comments: Patient refused to follow instructions to take full inspirations and expirations. No wheezing heard - Cardiovascular Exam Cardiovascular Exam: REGULAR RHYTHM, +S1, +S2. absent: Gallop, Rubs, Murmur Assessment and Plan - Assessment and Plan (Free Text) Assessment: 22 year old male with PMH homelessness, asthma, depression, polysubstance abuse , reported hx of Hep C, admitted s/p drug overdose, suicidal ideations. Patient found to have elevated LFTS: Plan: Elevated LFTs: - hepatitis panel negative - LFT's downtrending Mild hypoglycemia: - will repeat blood glucose - Encourage PO intake Suicidal ideation/drug abuse/depression: - management as per psych Asthma: - ventolin inhaler - symptoms have improved, c/w current therapy Patient is medically optimized at this time. Thank you for the opportunity to participate in the care of the above named patient. Please consult again as necessary. Patient case reviewed with and plan approved by attending physician, Dr. Clark <Jackson Clark - Last Filed: 09/05/17 10:38> Objective - Vital Signs/Intake and Output Vital Signs (last 24 hours): Temp Pulse Resp BP Pulse Ox 98 F 65 18 99/56 L 99 09/04/17 09:26 09/04/17 16:00 09/04/17 09:26 09/04/17 16:00 09/04/17 09:26 - Medications Medications: Current Medications Albuterol/Ipratropium (Duoneb 3 Mg/0.5 Mg (3 Ml) Ud) 3 ml IH Q4 PRN PRN Reason: sob Arformoterol Tartrate (Brovana) 15 mcg IH [id number] [facility] Last Admin: 09/05/17 07:56 Dose: Not Given Budesonide (Pulmicort Respules) 0.25 mg IH [id number] [facility] Stop: 09/07/17 10:00 Last Admin: 09/05/17 07:56 Dose: Not Given Clonidine HCl (Catapres) 0.1 mg PO BID PRN PRN Reason: opioid withdrawals Last Admin: 09/04/17 18:15 Dose: 0.1 mg Gabapentin (Neurontin) 300 mg PO TID [facility] PRN Reason: Protocol Last Admin: 09/04/17 18:15 Dose: 300 mg Lorazepam (Ativan) 2 mg IM Q6 PRN; Protocol PRN Reason: Agitation Lorazepam (Ativan) 2 mg PO Q6 PRN; Protocol PRN Reason: ANXIETY/AGITATION Last Admin: 09/04/17 18:15 Dose: 2 mg Mirtazapine (Remeron) 15 mg PO HS [facility] Last Admin: 09/04/17 21:09 Dose: 15 mg Multivitamins/Minerals (Therapeutic-M Tab) 1 tab PO DAILY [facility] Ondansetron HCl (Zofran Odt) 4 mg PO Q8H PRN PRN Reason: Nausea/Vomiting Quetiapine Fumarate (Seroquel) 50 mg PO HS [facility] PRN Reason: Protocol Last Admin: 09/04/17 21:09 Dose: 50 mg Tramadol HCl (Ultram) 50 mg PO TID [facility] Last Admin: 09/04/17 18:15 Dose: 50 mg Ziprasidone (Geodon Cap) 20 mg PO Q6H PRN; Protocol PRN Reason: psychosis/agitation Ziprasidone (Geodon Inj) 20 mg IM Q6H PRN; Protocol PRN Reason: severe agitaiton/psychosis - Labs Labs: 09/05/17 07:00 Attending/Attestation - Attestation I have personally seen and examined this patient.: Yes I have fully participated in the care of the patient.: Yes I have reviewed all pertinent clinical information, including history, physical exam and plan: Yes Notes (Text): 09/05/17 10:36 Attending note; Patient seen and examined with resident in psychiatric floor. Patient is a 22 year old male with PMH of homelessness, asthma, depression, hepatitis C, polysubstance abuse, brought in by EMS for drug overdose. Urine drug is positive for opiates, benzos and cocaine. Continue treatment with Ativan and clonidine. Asthma; started on DuoNeb when necessary. Patient uses albuterol and Advair when necessary at home. Currently no significant wheezing. Stable respiratory status. Active smoking; smoking cessation is strongly advised. Patient refused patch. Polysubstance abuse; complete cessation of all drugs is strongly recommended. IVDA; elevated LFTs. trending down. Hepatitis and HIV pending. Follow up results. Patient is medically stable. Please reconsult as needed. Patient is advised to follow-up with [facility] upon discharge.
[2017-09-05 13:10] VITALS: TEMP 97.7
[2017-09-06] MEDS: Arformoterol 15 mcg/2 ml Inh Sol IH SCH ×3 (07:47→19:54)
[2017-09-06] MEDS: Budesonide 0.25 mg/2 ml Inhal Susp UD IH SCH ×2 (07:48→10:22)
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
[2017-09-06] MEDS: Multivitamin With Minerals Tab PO SCH (10:15)
[2017-09-06 10:59] VITALS: RESP 16
[2017-09-06] MEDS ORDERED: Magnesium Hydroxide Susp 30 ml UD PO PRN (16:23)
[2017-09-06] MEDS: Alum-Mag Hydrox-Simethicone Susp (30 mL) PO PRN (17:52)
[2017-09-07] MEDS: Alum-Mag Hydrox-Simethicone Susp (30 mL) PO PRN ×2 (02:48→10:21)
[2017-09-07 03:28] VITALS: BP 140/117; PULSE 118
[2017-09-07 08:08] LABS: HEPATITIS B SURFACE AG Negative (NEGATIVE)
[2017-09-07] MEDS: Budesonide 0.25 mg/2 ml Inhal Susp UD IH SCH (08:10)
[2017-09-07] MEDS: Arformoterol 15 mcg/2 ml Inh Sol IH SCH (08:10)
[2017-09-07 08:14] LABS: HEPATITIS A IGM NEGATIVE (NEGATIVE); HEPATITIS B CORE AB NEGATIVE (NEGATIVE)
[2017-09-07] MEDS: Multivitamin With Minerals Tab PO SCH (09:13)
[2017-09-07 09:55] LABS: HEPATITIS C ANTIBODY REACTIVE (NEGATIVE)
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
== END 2017-09-07 12:25 | disposition left against medical advice (07) | DRG 743 ==
LOC: ED 23:22 → ERH 09-04 09:07 → PSYC 09-04 09:34
PROVIDERS: ADMIT Psychiatry & Neurology Psychiatry; ATTEND Psychiatry & Neurology Psychiatry
PROC: GZ3ZZZZ Medication Management (ICD-10-PCS; principal; 2017-09-04)
DX: F11.24 Opioid dependence with opioid-induced mood disorder (principal); F14.24 Cocaine dependence with cocaine-induced mood disorder; T40.1X2A Poisoning by heroin, intentional self-harm, initial encounter; T40.5X2A Poisoning by cocaine, intentional self-harm, initial encounter; B19.20 Unspecified viral hepatitis C without hepatic coma; F32.9 Major depressive disorder, single episode, unspecified; E16.2 Hypoglycemia, unspecified; J45.909 Unspecified asthma, uncomplicated; F17.200 Nicotine dependence, unspecified, uncomplicated; Z91.5 Personal history of self-harm; Z59.0 Homelessness